=== PATIENT | male | born 1945 | race Caucasian/White ===

== ENCOUNTER 2016-07-18 09:11 | Outpatient (CLI) | payer MEDICARE, OTHER ==
[2016-07-18 18:06] LABS: CALCIUM 9.4 mg/dL (8.5-10.3); CREATININE 0.9 mg/dL (0.6-1.2)
== END 2016-07-18 09:12 | disposition home or self-care (01) ==
LOC: LAB.F 09:11
PROVIDERS: ATTEND Family Medicine
DX: D18.00 Hemangioma unspecified site (principal)
CPT/HCPCS: 36415; 80048

== ENCOUNTER 2016-07-25 07:34 | Outpatient (CLI) | payer MEDICARE, OTHER ==
[2016-07-25] MEDS ORDERED: GADOBUTROL 10 MMOL/10 ML SYRINGE IVP ONE (08:36)
--- NOTE | 2016-07-25 09:54 | MRI Report ---
EXAM: MRI BRAIN WITHOUT AND WITH CONTRAST EXAM DATE: 07/25/2016 08:58 AM. CLINICAL HISTORY: Double vision and loss of balance. 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 COMPARISON: None. TECHNIQUE: Multiplanar, multisequence T1-weighted and fluid-sensitive MR sequences of the brain were performed. Sequences optimized for brain and orbits evaluation. Other: None. Without and with IV Cont rast: 9 mL Gadavist. FINDINGS: Orbits: No proptosis, abnormal enhancement or space-occupying mass or cyst. Unremarkable appearance o f the optic nerves, no evidence for edema or enhancement. Unremarkable symmetric appearance of the la crimal glands and extraocular muscles. Brain Volume: Overall brain volume is within normal limits for age. Parenchyma/Dura: No acute or recent ischemic infarct or cerebral hemorrhage. White matter T2-hyperint ense signal changes are minimal, potentially contributed to by aging and minimal microangiopathy. Extra-axial CSF signal widening measuring about 2.5 cm in the anterior left middle fossa adjacent to which is a region of encephalomalacia and gliosis in the anterior left temporal lobe which appears ch ronic without associated enhancement, this may be postoperative, a chronic-appearing left frontotempo ral craniotomy appears to have been previously performed. Ventricles/Cisterns: No hydrocephalus. Sinuses: Moderately prominent bilateral ethmoid sinus mucosal thickening with several opacified ethmo id air cells. Minimal maxillary and sphenoid mucosal thickening. Bones: No acute marrow edema. Other: The major arterial skull base flow voids are present. Previous cataract surgery. IMPRESSION: 1. Unremarkable MRI appearance of the orbits. 2. No acute intracranial abnormality or enhancing mass, minimal chronic age-related changes. 3. Small defect in the anterior left temporal lobe, this may be a chronic postoperative change, there are findings of previous left frontotemporal craniotomy. [facility] Referring Provider Line: [phone] SITE ID: [id number]
== END 2016-07-25 07:35 | disposition home or self-care (01) ==
LOC: DI 07:34
PROVIDERS: ATTEND Family Medicine
DX: H53.2 Diplopia (principal)
CPT/HCPCS: 70553; A9585

== ENCOUNTER 2017-04-11 08:00 | Outpatient (CLI) | payer MEDICARE, OTHER ==
[2017-04-11 19:22] LABS: BASOPHILS # (AUTO) 0.1 10^3/uL (0.0-0.1); BASOPHILS % (AUTO) 1.1 %; EOSINOPHILS # (AUTO) 0.2 10^3/uL (0.0-0.7); EOSINOPHILS % (AUTO) 2.9 %; HGB - HEMOGLOBIN 15.1 g/dL (14.0-18.0); LYMPHOCYTES # (AUTO) 1.2 10^3/uL (1.5-3.5); LYMPHOCYTES % (AUTO) 22.5 %; MEAN CORPUSCULAR HEMOGLOBIN 29.2 pg (27.0-31.0); MEAN CORPUSCULAR VOLUME 88.5 fL (80.0-94.0); MONOCYTES # (AUTO) 0.3 10^3/uL (0.0-1.0); MONOCYTES % (AUTO) 6.2 %; NEUTROPHILS # (AUTO) 3.5 10^3/uL (1.5-6.6); NEUTROPHILS % (AUTO) 67.3 %; PLT - PLATELET COUNT 178 10^3/uL (130-450); RED BLOOD COUNT 5.18 10^6/uL (4.70-6.10); RED CELL DISTRIBUTION WIDTH 14.5 % (12.0-15.0); WHITE BLOOD COUNT 5.3 x10^3/uL (4.8-10.8)
[2017-04-11 19:29] LABS: PT - PROTHROMBIN TIME 11.6 secs (9.9-12.6)
[2017-04-11 19:38] LABS: ALBUMIN 4.4 g/dL (3.2-5.5); ALBUMIN/GLOBULIN RATIO 2.3 (1.0-2.2); BILIRUBIN,TOTAL 0.9 mg/dL (0.2-1.0); CALCIUM 8.9 mg/dL (8.5-10.3); CREATININE 0.8 mg/dL (0.6-1.2); TOTAL PROTEIN 6.3 g/dL (6.7-8.2)
== END 2017-04-11 23:59 | disposition home or self-care (01) ==
LOC: LAB.WCP 08:00
PROVIDERS: ATTEND Family Medicine
DX: R04.0 Epistaxis (principal)
CPT/HCPCS: 36415; 80053; 85025; 85610; 85730

== ENCOUNTER 2018-07-16 16:00 | Outpatient (CLI) | payer MEDICARE, OTHER ==
[2018-07-16 16:22] LABS: BASOPHILS # (AUTO) 0.1 10^3/uL (0.0-0.1); EOSINOPHILS # (AUTO) 0.1 10^3/uL (0.0-0.7); EOSINOPHILS % (AUTO) 2.2 %; HGB - HEMOGLOBIN 15.7 g/dL (14.0-18.0); LYMPHOCYTES # (AUTO) 1.4 10^3/uL (1.5-3.5); LYMPHOCYTES % (AUTO) 20.9 %; MEAN CORPUSCULAR HGB CONC 34.3 g/dL (32.0-36.0); MEAN CORPUSCULAR VOLUME 87.5 fL (80.0-94.0); MEAN PLATELET VOLUME 8.2 fL (7.4-11.4); MONOCYTES # (AUTO) 0.5 10^3/uL (0.0-1.0); MONOCYTES % (AUTO) 7.4 %; NEUTROPHILS # (AUTO) 4.5 10^3/uL (1.5-6.6); NEUTROPHILS % (AUTO) 68.5 %; PLT - PLATELET COUNT 169 10^3/uL (130-450); RED BLOOD COUNT 5.22 10^6/uL (4.70-6.10); WHITE BLOOD COUNT 6.6 x10^3/uL (4.8-10.8)
--- NOTE | 2018-07-17 11:14 | XRAY Report ---
Reason: MUSCLE SPASM, CERVICAL RADICULOPATHY LT, Procedure Date: 07/16/2018 Accession Number: [id number] / [id number] Procedure: XR - Lumbar Spine 2 View CPT Code: FULL RESULT: EXAM: LUMBOSACRAL SPINE RADIOGRAPHY EXAM DATE: 07/16/2018 05:08 PM. CLINICAL HISTORY: Muscle spasm, cervical radiculopathy left. COMPARISONS: None. TECHNIQUE: 3 views. FINDINGS: Alignment: Levoconvex thoracolumbar scoliosis centered about L2, approximately 20 degrees. Approximately 7 mm of anterolisthesis of L4 on L5. Bones: Five [id number] lumbar vertebral bodies are present. No fractures or bone lesions. Disks: Mild multilevel loss of disk space height with marginal osteophytosis, most pronounced at the apex of the scoliosis. Facets: Moderate facet arthropathy at L3 and L4 and severe facet arthropathy at L5. Sacroiliac Joints: Unremarkable. Soft Tissues: Normal. The visualized bowel gas pattern is normal. IMPRESSION: Degenerative changes with scoliosis and anterolisthesis of the lower lumbar spine as described. Given extensive facet arthropathy and anterolisthesis at L4-L5, spondylolysis is possible but not definitely visualized on this exam. [facility]
--- NOTE | 2018-07-22 08:12 | XRAY Report ---
Reason: THORACIC SPINE NECK PAIN Procedure Date: 07/22/2018 Accession Number: [id number] / [id number] Procedure: XR - Chest 2 View X-Ray CPT Code: 33348 FULL RESULT: EXAM: CHEST RADIOGRAPHY EXAM DATE: 07/22/2018 07:14 AM. CLINICAL HISTORY: THORACIC SPINE NECK PAIN. COMPARISON: None. TECHNIQUE: 2 views. FINDINGS: Lungs/Pleura: No focal opacities evident. No pleural effusion. No pneumothorax. Normal volumes. Mediastinum: Heart and mediastinal contours are unremarkable. Other: Minimal age-indeterminate mid thoracic compression fracture exact level unknown. Mild thoracolumbar scoliosis. IMPRESSION: No acute cardiopulmonary abnormality. [facility]
== END 2018-07-16 16:01 | disposition home or self-care (01) ==
LOC: LAB 16:00 → DI 16:01
PROVIDERS: ATTEND Family Medicine
DX: R07.9 Chest pain, unspecified (principal); M51.36 Other intervertebral disc degeneration, lumbar region; M47.816 Spondylosis without myelopathy or radiculopathy, lumbar region; M43.16 Spondylolisthesis, lumbar region; M62.830 Muscle spasm of back
CPT/HCPCS: 36415; 71046; 72100; 85025; 85651; 86140

== ENCOUNTER 2020-04-21 18:25 | Outpatient (CLI) | payer OTHER | END 2020-04-21 18:26 | disposition home or self-care (01) | LOC: COV 18:25 | PROVIDERS: ATTEND Surgery | DX: Z01.812 Encounter for preprocedural laboratory examination (principal); K40.90 Unilateral inguinal hernia, without obstruction or gangrene, not specified as recurrent; Z20.822 Contact with and (suspected) exposure to COVID-19 ==

== ENCOUNTER 2020-04-28 12:26 | Day surgery (SDC) | payer OTHER ==
[2020-04-28] MEDS ORDERED: ceFAZolin 2 GM/50 ML 2 GM/50 ML BAG IV ONE (12:44)
[2020-04-28] MEDS ORDERED: LACTATED RINGERS 1,000 ML IV ONE ×2 (12:50→15:11)
[2020-04-28] MEDS ORDERED: BUPIVACAINE 0.5% PF 30 ML VIAL INFIL ONE ×2 (13:55→15:01)
[2020-04-28] MEDS ORDERED: LIDOCAINE 2%-EPI 1:100000 20 ML MDV SUBQ ONE ×2 (13:56)
[2020-04-28] MEDS ORDERED: ceFAZolin 1 GM VIAL IR ONE (13:56)
[2020-04-28] MEDS ORDERED: ceFAZolin 1 GM VIAL ONE (14:02)
[2020-04-28] MEDS ORDERED: LIDOCAINE 2%-EPI 1:100000 20 ML MDV ONE (14:02)
[2020-04-28] MEDS ORDERED: BUPIVACAINE 0.5% PF 30 ML VIAL ONE (14:03)
--- NOTE | 2020-04-28 14:04 | ANESTHESIA ---
Pre-Anesthesia VS, & Labs - Diagnosis left inguinal hernia - Procedure left inguinal hernia repair. Vital Signs: Temp Pulse Resp BP Pulse Ox 36.5 C 60 16 151/80 H 0 L 04/28/20 12:50 04/28/20 12:50 04/28/20 12:50 04/28/20 12:50 04/28/20 12:50 Height: 5 ft 10 in Weight (kg): 83.6 kg Body Mass Index: 26.4 BMI Classification: Overweight - NPO >8 hours - Lab Results Lab results reviewed: Yes Home Medications and Allergies Home Medications: Ambulatory Orders Alfuzosin HCl [Uroxatral] 10 mg PO DAILY 04/17/20 Finasteride [Proscar] 5 mg PO DAILY 04/17/20 Alfuzosin HCl [Uroxatral] 10 mg PO DAILY 04/17/20 Finasteride [Proscar] 5 mg PO DAILY 04/17/20 Allergies/Adverse Reactions: Allergies Allergy/AdvReac Type Severity Reaction Status Date / Time No Known Drug Allergies Allergy Verified 04/28/20 12:58 Anes History & Medical History - Anesthetic History Anesthesia Complications: reports: No previous complications Family history of Anesthesia Complications: Denies Family history of Malignant Hyperthermia: Denies - Medical History Cardiovascular: reports: Arrhythmia Pulmonary: reports: None Gastrointestinal: reports: None Urinary: reports: Benign prostate hypertrophy Musculoskeletal: reports: None Endocrine/Autoimmune: reports: None Skin: reports: None - Surgical History General: reports: Appendectomy, Colonoscopy, Other Eyes Ears Nose Throat (EENT): reports: Cataracts Neurologic: reports: Craniotomy Exam General: Alert, Oriented x3, Cooperative, No acute distress Dental: WNL Mouth Openin Fingerbreadth Neck Mobility: Normal Mallampati classification: I Respiratory: Lungs clear, Normal breath sounds, No respiratory distress, No accessory muscle use Cardiovascular: Regular rate, Normal S1, Normal S2, No murmurs Plan Anesthesia Type: General, Total IV Consent for Procedure(s) Verified and Reviewed: Yes Code Status: Attempt Resuscitation ASA classification: 2-Mild systemic disease Is this case an emergency?: No
[2020-04-28] MEDS ORDERED: ONDANSETRON 4 MG/2 ML VIAL IVP PRN ×3 (14:05→15:20)
[2020-04-28] MEDS ORDERED: NALOXONE 0.4 MG/ML VIAL IVP PRN (14:05)
[2020-04-28] MEDS ORDERED: METOCLOPRAMIDE 10 MG/2 ML VIAL IVP PRN (14:05)
[2020-04-28] MEDS ORDERED: MORPHINE 2 MG/ML CARPUJECT IVP PRN (14:05)
[2020-04-28] MEDS ORDERED: ATROPINE ABBOJECT 1 MG/10 ML SYRINGE IVP PRN (14:05)
[2020-04-28] MEDS ORDERED: ePHEDrine 50 MG/ML VIAL IVP PRN (14:05)
[2020-04-28] MEDS ORDERED: HYDROmorphone 0.5 MG/0.5 ML SYRINGE IVP PRN (14:05)
[2020-04-28] MEDS ORDERED: fentaNYL 100 MCG/2 ML VIAL IVP PRN (14:05)
[2020-04-28] MEDS ORDERED: PROPOFOL 500 MG/50 ML 500 MG/50 ML VIAL ONE (14:13)
[2020-04-28] MEDS ORDERED: LIDOCAINE-PF 2% 10 ML AMP SUBQ ONE (14:15)
[2020-04-28] MEDS ORDERED: ACETAMINOPHEN 1,000 MG/100 ML 100 ML IV ONE (14:16)
[2020-04-28] MEDS ORDERED: ONDANSETRON 4 MG/2 ML VIAL ONE (14:16)
[2020-04-28] MEDS ORDERED: MIDAZOLAM 2 MG/2 ML VIAL ONE (14:19)
[2020-04-28] MEDS ORDERED: PROPOFOL 200 MG/20 ML VIAL IVP ONE (14:26)
[2020-04-28] MEDS ORDERED: LACTATED RINGERS 1,000 ML IV SCH (15:00)
--- NOTE | 2020-04-28 15:10 | OPERATIVE REPORT ---
Operative Report - General Planned Procedure: Left Inguinal Hernia Repair Pre-Op Diagnosis: Large, symptomatic left inguinal hernia Procedure Performed: Repair of direct and indirect left inguinal hernias Post Op Diagnosis: Large left inguinal pantaloon hernia - Procedure Note Primary Surgeon: Joni Anesthesia Provider: RACHEL Saini Anesthesia Technique: Local, MAC Pathology: None Estimated Blood Loss (mL): 5 Indications: Symptomatic left inguinal hernia Findings: Large pantaloon left inguinal hernia with near obliteration of the inguinal floor Complications: None apparent - Other Other Information/Narrative: After obtaining informed consent, the patient is brought to the operating room and placed in the supine position on the operating table. Following successful induction of general endotracheal anesthesia, appropriate padding of all bony prominences, and placement of appropriate monitors, the abdomen was prepped and draped in the standard surgical fashion. A timeout was held per scope protocol. All elements of the surgical safety checklist were followed before, during, and after the procedure. We began the procedure by infiltrating a mixture of local anesthetics medial to the anterior superior iliac spine on the left. This was done to create an ileal inguinal nerve block. We then selected a site for an incision in the left lower quadrant just superior and lateral to the right pubic tubercle. This area was anesthetized with additional local anesthetic and an incision was created here.The incision was carried down through the skin and subcutaneous tissue to reveal the fascia of the external oblique aponeurosis. Retractor was placed and the aponeurosis was opened in direction of its fibers. We noted a bulging of the entire inguinal canal and near complete obliteration of the floor of the inguinal canal. The ilioinguinal nerve was immediately identified. We continued by identifying the spermatic cord and gently encircling it with a Pen rachid drain. The hernia sac was carefully dissected free from the cord structures and was noted to be a pantaloon structure with portions medial and lateral to the epigastric vessels. Because of the large size of the defect and the laxity of the floor of the canal, I elected to repair both the internal and external defects with separate pieces of mesh. I began by deploying a large PHS by layered implant into the indirect defect. This was straightened and flattened in the preperitoneal space. The overlying leaflet was then trimmed to allow for easy passage of the spermatic cord and contents. A mario was created here the cord was placed in this opening and then a stitch was used to reapproximate the leaflets of the mesh. The mesh was tacked to the transversalis fascia and the oblique muscle with an air knot laterallyA second implant of the same type, large PHS system, was then deployed into the direct defect. It was again straightened and flattened in the preperitoneal space. The overlying leaflets did come into contact with the jet other anteriorly. They were sewn together. A mario was created in the second anterior leaflet for placement of the spermatic cord and again the cord was able to lie in this opening and the mesh unobstructed. A stitch was used to approximate it medially. The more inferior medial portion of the anterior leaflet of the second piece of mesh was then sewn to the pubic tubercle with interrupted Vicryl suture. The wound was then checked for hemostasis. It was irrigated with warm saline solution and aspirated free of all fluid and particulate matter. The external oblique aponeurosis was then closed with a running locking Vicryl suture Shawna's fascia was closed with Vicryl suture and Monocryl stitches were placed in the skin. All sponge, needle, and instrument counts were correct at the conclusion of the case. The patient was allowed awaken from anesthesia without difficulty and taken to the postanesthesia care unit in good condition.
[2020-04-28] MEDS ORDERED: ACETAMINOPHEN 325 MG TABLET PO PRN ×2 (15:18→15:20)
[2020-04-28] MEDS ORDERED: oxyCODONE 5 MG TABLET PO PRN ×2 (15:18→15:20)
[2020-04-28] MEDS ORDERED: IBUPROFEN 600 MG TABLET PO PRN ×2 (15:18→15:20)
[2020-04-28 16:07] VITALS: BP 122/59
--- NOTE | 2020-04-28 18:02 | ANESTHESIA POST OP EVALUATION ---
Anesthesia Post Eval - Post Anesthesia Eval Vitals: Last Vital Signs Temp 36.5 C 04/28/20 16:05 Pulse 62 04/28/20 16:05 Resp 16 04/28/20 16:05 BP 122/59 L 04/28/20 16:05 Pulse Ox 98 04/28/20 16:05 CV Function Including HR & BP: positive: Stable Pain Control: positive: Satisfactory Nausea & Vomiting: positive: Negative Mental Status: positive: Baseline Respiratory Status: Airway Patent Hydration Status: Satisfactory Anesthesia Complications: positive: None
== END 2020-04-28 12:27 | disposition home or self-care (01) ==
LOC: SDS 12:26
PROVIDERS: ATTEND Surgery
DX: K40.90 Unilateral inguinal hernia, without obstruction or gangrene, not specified as recurrent (principal); N40.0 Benign prostatic hyperplasia without lower urinary tract symptoms; E66.3 Overweight; Z68.26 Body mass index [BMI] 26.0-26.9, adult
CPT/HCPCS: 49505; C1781; J0131; J0690; J7120

== ENCOUNTER 2021-01-11 11:55 | Outpatient (CLI) | payer MEDICARE ==
[2021-01-11 12:22] LABS: CREATININE 0.9 mg/dL (0.6-1.2)
[2021-01-11] MEDS ORDERED: GADOBUTROL 7.5 MMOL/7.5 ML VIAL ONE (12:35)
--- NOTE | 2021-01-11 13:33 | MRI Report ---
PROCEDURE: Brain W/WO INDICATIONS: GAIT INSTABILITY, HX OF RESECTION OF MENINGIOMA CONTRAST: IV CONTRAST: Gadavist ml: 7.5 TECHNIQUE: Noncontrast axial T1 spin echo, axial T2 fast spin echo, sagittal and axial FLAIR, coronal T2 fast sp in echo, axial gradient echo, axial diffusion and ADC through the brain. After the administration of contrast, axial and coronal T1 spin echo with fat saturation through the brain. COMPARISON: MRI brain with and without contrast dated 07/25/2016 FINDINGS: Image quality: Excellent. CSF spaces: Basal cisterns are patent. No extra-axial fluid collections. Ventricles are normal in size and shape. Brain: No midline shift. There is left anterior temporal lobe volume loss and gliosis. This could be postoperative changes from previous meningioma resection No intracranial bleeds or masses. No abnormal intracranial enhancement. There is cerebral volume loss for age. There is periventricular white matter chronic small vessel ischemic change. The brain stem appears normal. Diffusion-weighted images demonstrate no acute ischemic insults. No chronic is chemic insults. Normal intravascular flow voids are present. Skull and face: Chronic postsurgical changes presumably from prior craniotomy. Orbits appear normal. Sinuses: Sinuses and mastoids appear clear. IMPRESSION: Expected postoperative changes, with stable appearance since 07/25/2016. No suspicious en hancement identified to suggest tumor recurrence. Reviewed by: Yossi Martínez MD on 01/11/2021 1:32 PM PST Approved by: Yossi Martínez MD on 01/11/2021 1:32 PM PST Station ID: [id number]
[2021-01-11] MEDS ORDERED: GADOBUTROL 7.5 MMOL/7.5 ML VIAL IVP ONE (17:52)
== END 2021-01-11 11:56 | disposition home or self-care (01) ==
LOC: DI 11:55
PROVIDERS: ATTEND Psychiatry & Neurology Neurology
DX: R26.81 Unsteadiness on feet (principal); Z98.890 Other specified postprocedural states; Z86.03 Personal history of neoplasm of uncertain behavior; R47.89 Other speech disturbances; G25.0 Essential tremor
CPT/HCPCS: 36415; 70553; 82565; A9585

== ENCOUNTER 2021-12-26 12:29 | Outpatient (CLI) | payer MEDICARE | END 2021-12-26 12:30 | disposition home or self-care (01) | LOC: DI 12:29 | PROVIDERS: ATTEND Family Medicine | DX: I34.0 Nonrheumatic mitral (valve) insufficiency (principal) | CPT/HCPCS: 93306 ==

== ENCOUNTER 2023-01-22 12:31 | Outpatient (CLI) | payer MEDICARE, OTHER | END 2023-01-22 12:32 | disposition home or self-care (01) | LOC: DI 12:31 | PROVIDERS: ATTEND Internal Medicine Cardiovascular Disease | DX: Z95.2 Presence of prosthetic heart valve (principal); I51.7 Cardiomegaly; I34.0 Nonrheumatic mitral (valve) insufficiency | CPT/HCPCS: 93306 ==

== ENCOUNTER 2023-02-21 14:45 | Outpatient (CLI) | payer MEDICARE ==
[2023-02-21 21:37] LABS: INFLUENZA A- RESP PCR PANEL NOT DETECTED; INFLUENZA B - RESP PCR PANEL NOT DETECTED; RSV- RESP PCR PANEL NOT DETECTED; SARS-CoV-2 -RESP PCR PANEL NOT DETECTED
--- NOTE | 2023-02-26 11:21 | XRAY Report ---
PROCEDURE: Chest 2V INDICATIONS: COUGH TECHNIQUE: 2 views of the chest were acquired. COMPARISON: X-ray. Chest 07/16/2018 FINDINGS: Surgical changes and devices: Prosthetic cardiac valve. Medial sternotomy wires are present.. Lungs and pleura: No pleural effusions or pneumothorax. Lungs are clear. Mediastinum: Mediastinal contours appear normal. Heart size is normal. Bones and chest wall: Questionable mild compression deformity of the thoracic spine, appearing simil ar to prior x-ray. Overlying soft tissues appear unremarkable. IMPRESSION: No acute cardiopulmonary process. Reviewed by: Sage Beck MD on 02/21/2023 4:05 PM PST Approved by: Sage Beck MD on 02/21/2023 4:05 PM PST Station ID: [id number]
== END 2023-02-21 15:00 | disposition home or self-care (01) ==
LOC: DI.N 14:45
PROVIDERS: ATTEND Family Medicine
DX: R05.9 Cough, unspecified (principal)
CPT/HCPCS: 87637

== ENCOUNTER 2023-06-06 11:51 | Outpatient (CLI) | payer MEDICARE, OTHER | END 2023-06-06 11:52 | disposition home or self-care (01) | LOC: LAB 11:51 | PROVIDERS: ATTEND Urology | DX: N40.2 Nodular prostate without lower urinary tract symptoms (principal) | CPT/HCPCS: 36415; 84153 ==

== ENCOUNTER 2023-06-23 11:11 | Day surgery (SDC) | payer MEDICARE, OTHER ==
[2023-06-23] MEDS: LACTATED RINGERS 1,000 ML IV ONE ×2 (11:13→13:05)
[2023-06-23] MEDS ORDERED: LIDOCAINE-MPF 1% 30 ML VIAL ONE (11:18)
--- NOTE | 2023-06-23 11:59 | ANESTHESIA ---
Pre-Anesthesia VS, & Labs - Diagnosis elevated PSA - Procedure TRUS biopsy Height: 5 ft 9 in Weight (kg): 97 kg Body Mass Index: 31.6 BMI Classification: Obese - NPO >8 hours Home Medications and Allergies Home Medications: Ambulatory Orders Apixaban [Eliquis] 2.5 mg PO DAILY 06/16/23 Atenolol [Tenormin] 50 mg PO DAILY 06/16/23 Cholecalciferol (Vitamin D3) [Vitamin D3] 1,250 mcg PO DAILY 06/16/23 Citalopram Hydrobromide [Celexa] 20 mg PO DAILY 06/16/23 Cyanocobalamin [Vitamin B-12] 500 mcg PO DAILY 06/16/23 Ubidecarenone [Coenzyme Q10] 300 mg PO DAILY 06/16/23 Zinc Gluconate [Zinc] 30 mg PO DAILY 06/16/23 Alfuzosin HCl [Uroxatral] 10 mg PO DAILY 04/17/20 Finasteride [Proscar] 5 mg PO DAILY 04/17/20 Apixaban [Eliquis] 2.5 mg PO DAILY 06/16/23 Atenolol [Tenormin] 50 mg PO DAILY 06/16/23 Cholecalciferol (Vitamin D3) [Vitamin D3] 1,250 mcg PO DAILY 06/16/23 Citalopram Hydrobromide [Celexa] 20 mg PO DAILY 06/16/23 Cyanocobalamin [Vitamin B-12] 500 mcg PO DAILY 06/16/23 Ubidecarenone [Coenzyme Q10] 300 mg PO DAILY 06/16/23 Zinc Gluconate [Zinc] 30 mg PO DAILY 06/16/23 Allergies/Adverse Reactions: Allergies Allergy/AdvReac Type Severity Reaction Status Date / Time No Known Drug Allergies Allergy Verified 04/28/20 12:58 Anes History & Medical History - Anesthetic History Anesthesia Complications: reports: No previous complications - Medical History Cardiovascular: reports: Atrial fibrillation, Arrhythmia Pulmonary: reports: None Gastrointestinal: reports: None Urinary: reports: Benign prostate hypertrophy, Frequency Musculoskeletal: reports: None Endocrine/Autoimmune: reports: None Skin: reports: None Smoking Status: Never smoker - Surgical History General: reports: Appendectomy, Colonoscopy, Other Eyes Ears Nose Throat (EENT): reports: Cataracts Neurologic: reports: Craniotomy Exam General: Alert, Oriented x3 Dental: WNL Mouth Opening: Greater than 4 Fingerbreadths Neck Mobility: Normal Mallampati classification: II Thyromental Distance: greater than 6 cm Respiratory: Lungs clear Cardiovascular: Regular rate Plan Anesthesia Type: Total IV Consent for Procedure(s) Verified and Reviewed: Yes Code Status: Attempt Resuscitation ASA classification: 3-Severe systemic disease Is this case an emergency?: No
[2023-06-23] MEDS ORDERED: fentaNYL 100 MCG/2 ML VIAL ONE (12:10)
[2023-06-23] MEDS ORDERED: MIDAZOLAM 2 MG/2 ML VIAL ONE (12:10)
[2023-06-23] MEDS ORDERED: PROPOFOL 500 MG/50 ML 500 MG/50 ML VIAL ONE (12:10)
[2023-06-23] MEDS: LIDOCAINE 1% 50 ML MDV SUBQ ONE (12:45)
--- NOTE | 2023-06-23 13:06 | Discharge Plan ---
Discharge Plan Problem Reviewed?: Yes Disposition: Home, Self Care Condition: Good Diet: Cardiac Activity Restrictions: No Restrictions Shower Restrictions: No Driving Restrictions: No Instruction Topics: Biopsy Ultrasound Transrectal, Cystoscopy Additional Instructions or Follow Up instructions: You will be contacted for follow-up with Dr. Calvert in 1 to 2 weeks time No Smoking: If you smoke, Please STOP! Call for help.
--- NOTE | 2023-06-23 13:08 | OPERATIVE REPORT ---
Operative Report - General Procedure Date: 06/23/23 Planned Procedure: Cystoscopy, transrectal ultrasound-guided prostate biopsy Pre-Op Diagnosis: Elevated PSA, gross hematuria Procedure Performed: Cystoscopy, transrectal ultrasound-guided prostate biopsy Post Op Diagnosis: Elevated PSA, gross hematuria - Procedure Note Primary Surgeon: Enrike Anesthesia Provider: RACHEL Dewitt Anesthesia Technique: Moderate sedation Pathology: Routine prostate biopsy samples Estimated Blood Loss (mL): 0 Findings: 92cc prostate normal cystoscopy Complications: none - Other Other Information/Narrative: After informed consent was obtained, the patient was brought to the OR and laid in supine position. The patient was anesthetized per anesthesia protocols and then placed in the left lateral decubitus position with the right side up. A timeout was performed reconfirming the patient, procedure and laterality. A transient ultrasound probe was placed per rectum and his prostate was visua lized. It was measured at 92 cc. 5 cc of 1% lidocaine was instilled to the lateral aspect of the prostate near the neurovascular bundles bilaterally. Using a 18-gauge needle we obtained samples from the left and right of the medial and lateral apex and mid and base of prostate. For a total of 12 samples. The probe was removed and no bleeding was noted We then turned him onto the supine position and after reprepping and draping him a flexible cystoscopy was performed which showed a normal urethra. He had enlarged prostate with lateral lobe hypertrophy and no significant median lobe. He had a fairly enlarged bladder which showed a small diverticulum at the dome but otherwise there are no other masses lesions or other concerns. This concluded the procedure and the patient tolerated the procedure well. He was brought to PACU without further incident he will follow-up in 1 to 2 weeks time for pathology discussion
[2023-06-23 13:26] VITALS: BP 126/74; O2SAT 98
== END 2023-06-23 11:12 | disposition home or self-care (01) ==
LOC: SDS 11:11
PROVIDERS: ATTEND Urology
PROC: 0TJB8ZZ Inspection of Bladder, Via Natural or Artificial Opening Endoscopic (ICD-10-PCS; 2023-06-23)
PROC: 0VB07ZX Excision of Prostate, Via Natural or Artificial Opening, Diagnostic (ICD-10-PCS; principal; 2023-06-23 12:45)
DX: C61 Malignant neoplasm of prostate (principal); R31.0 Gross hematuria; N32.3 Diverticulum of bladder; N40.1 Benign prostatic hyperplasia with lower urinary tract symptoms; R35.0 Frequency of micturition; E66.9 Obesity, unspecified; Z68.31 Body mass index [BMI] 31.0-31.9, adult
CPT/HCPCS: 52000; 55700; 76942; J7120